=== PATIENT | male | born 1990 | race Two or more races ===

== ENCOUNTER 2024-05-31 20:15 | Observation (INO) ==
[2024-05-31 20:39] LABS: BASOPHILS % (AUTO) 0.3 % (0.2-1.0); EOSINOPHILS % (AUTO) 0.2 % (0.9-2.9); HEMATOCRIT 52.8 % (42.0-54.0); HEMOGLOBIN 18.5 g/dL (13.5-18.0); LYMPHOCYTES # (AUTO) 2.1 X10^3/uL (1.3-2.9); LYMPHOCYTES % (AUTO) 11.8 % (21.0-51.0); MEAN CORPUSCULAR VOLUME 82.8 fL (80.0-100.0); MEAN PLATELET VOLUME 8.7 fL (7.4-11.0); MONOCYTES # (AUTO) 1.4 x10^3/uL (0.3-0.8); MONOCYTES % (AUTO) 7.9 % (0.0-13.0); NEUTROPHILS # (AUTO) 13.9 x10^3/uL (2.2-4.8); NEUTROPHILS % (AUTO) 79.8 % (42.0-75.0); PLATELET COUNT 296 X10^3/uL (150.0-450.0); RED BLOOD COUNT 6.38 X10^6/uL (4.7-6.0); RED CELL DISTRIBUTION WIDTH 13.6 % (11.6-16.5); WHITE BLOOD COUNT 17.4 X10^3/uL (3.6-10.0)
[2024-05-31 20:46] VITALS: BMI 25.1
[2024-05-31] MEDS: PROTONIX INJ 40 MG VIAL IVP ONE (20:47)
[2024-05-31] MEDS: ZOFRAN INJ 4 MG VIAL IVP ONE ×2 (20:47→23:36)
[2024-05-31 20:50] LABS: ALANINE AMINOTRANSFERASE 35 Units/L (12-78); ALBUMIN 6.1 g/dL (3.4-5.0); ALKALINE PHOSPHATASE 101 Units/L (46-116); AMYLASE 94 Units/L (25-115); ASPARTATE AMINO TRANSFERASE 23 Units/L (15-37); BLOOD UREA NITROGEN 28 mg/dL (7-18); CALCIUM 11.1 mg/dL (8.5-10.1); CARBON DIOXIDE 19.8 mmol/L (21-32); CHLORIDE 97 mmol/L (98-107); COR NA(FOR HYPERGLY) 142 mmol/L (136-145); CREATININE 3.64 mg/dL (0.70-1.30); GLUCOSE 205 mg/dL (65-99); LIPASE 44 Units/L (16-77); POTASSIUM 3.5 mmol/L (3.5-5.1); SODIUM 139 mmol/L (136-145); TOTAL PROTEIN 10.2 g/dL (6.4-8.2); eGFR NON BLACK RACES 21 (>60)
--- NOTE | 2024-05-31 20:59 | DR.GENAD ---
HPI Time Seen Time Seen by Provider: 05/31/24 20:58 PCP Primary Care Physician: SANJUANA HPI Comment HPI Comment: Patient with complaint of midepigastric pain and reflux. Patient states he has been very nauseated and dry heaving. Patient states he previously had some small gastric ulcers. He does continue to drink daily. He has not been taking his from PARP inhibitor. He denies any melena hematochezia or hematemesis. Complaint/Symptoms Chief Complaint:: Patient was wheeled into ER by spouse. Patient's spouse states he has been complaining of severe epigastric pain and back pain an hour [employer]. Patient has hx of gastric ulcers and is a daily drinker. Self Treatment fo Chief Complaint: none COVID-19 Coronavirus risk:travel/contact w/high risk person: No Has patient experienced Coronavirus symptoms: No Source History Provided: Patient Mode of Arrival Mode of Arrival: Wheelchair Timing Onset of Chief Complaint: 05/31/24 PMH PMH Past Medical History: Yes Past Medical History Comment: gastric ulcers Past Surgical History: No Family History History of Family Medical Conditions: No Social History Alcohol Use: DAILY Travel Risk Coronavirus risk:travel/contact w/high risk person: No Has patient experienced Coronavirus symptoms: No Infectious screening In the last 2 months have you had wt loss of >10#?: NO Have you had fever, night sweats or hemotysis?: No Have you traveled outside the country in the last 6 months?: No Isolation: Standard ROS Review of Systems Constitutional: No Symptoms Reported Eyes: No Symptoms Reported ENTM: No Symptoms Reported Respiratoy: No Symptoms Reported Cardiovascular: No Symptoms Reported Gastrointestinal/Abdominal: See HPI, Abdominal Pain, Nausea and Vomiting Genitourinary: No Symptoms Reported Neurological: No Symptoms Reported Musculoskeletal: No Symptoms Reported Integumentary: No Symptoms Reported Hematologic/Lymphatic: No Symptoms Reported Endocrine: No Symptoms Reported Psychiatric: No Symptoms Reported All Other Systems: Reviewed and Negative PE Vital Signs Vitals: Vital Signs Pulse Rate 116 Respiratory Rate 18 Blood Pressure 118/76 O2 Sat by Pulse Oximetry 100 General Limitations: No Limitations General Appearance: Alert and In No Apparent Distress Head Head Exam: Normal Inspection Eyes Eye exam: Normal Appearance ENT ENT Exam: Normal Exam External Ear Exam: Normal External Inspection TM/Canal Exam: Bilateral: Normal Nose Exam: Normal Nose Exam Mouth Exam: Normal Inspection Throat Exam: Normal Inspection Neck Neck Exam: Normal Inspection Chest Chest Inspection: Normal Inspection Respiratory Respiratory Exam: Normal Lung Sounds Bilat Respiratory Exam: Bilateral: Clear to Auscultation Cardiovascular Cardiovascular Exam: Regular Rate and Normal Rhythm Abdominal Exam Abdominal Exam: Normal Inspection, Normal Bowel Sounds and Soft Extremities Extremities Exam: Normal Inspection Back Back Exam: Normal Inspection Neurologic Neurological Exam: Alert and Oriented X3 Psychiatric Psychiatric Exam: Normal Affect and Normal Mood Skin Skin Exam: Warm, Dry, Intact and Normal Color COURSE Treatment Treatment: Nausea, vomiting and dry heaving had some improvement with Zofran and Phenergan. He still appears dehydrated and has had 2 units. Acute kidney injury likely secondary to dehydration. Consultation Called: 23:31 Consultation Comments: Discussed case with Dr. Andrea and she is agreeable to admission. ROR Labs Reviewed 05/31/24 20:30 05/31/24 20:30 Laboratory: WBC 17.4 X10^3/uL (3.6-10.0) H 05/31/24 20:30 RBC 6.38 X10^6/uL (4.7-6.0) H 05/31/24 20:30 Hgb 18.5 g/dL (13.5-18.0) H 05/31/24 20:30 Hct 52.8 % (42.0-54.0) 05/31/24 20:30 MCV 82.8 fL (80.0-100.0) 05/31/24 20:30 MCH 29.0 pg (27.0-34.0) 05/31/24 20:30 MCHC 35.0 g/dL (33.0-35.0) 05/31/24 20:30 RDW 13.6 % (11.6-16.5) 05/31/24 20:30 Plt Count 296 X10^3/uL (150.0-450.0) 05/31/24 20:30 MPV 8.7 fL (7.4-11.0) 05/31/24 20:30 Neut % (Auto) 79.8 % (42.0-75.0) H 05/31/24 20:30 Lymph % (Auto) 11.8 % (21.0-51.0) L 05/31/24 20: [place] % (Auto) 7.9 % (0.0-13.0) 05/31/24 20:30 Eos % (Auto) 0.2 % (0.9-2.9) L 05/31/24 20:30 Baso % (Auto) 0.3 % (0.2-1.0) 05/31/24 20:30 Neut # (Auto) 13.9 x10^3/uL (2.2-4.8) H 05/31/24 20:30 Lymph # (Auto) 2.1 X10^3/uL (1.3-2.9) 05/31/24 20:30 [place] # (Auto) 1.4 x10^3/uL (0.3-0.8) H 05/31/24 20:30 Eos # (Auto) 0.0 x10^3/uL (0.0-0.2) 05/31/24 20: Baso # (Auto) 0.0 X10^3/uL (0.0-0.1) 05/31/24 20:30 Absolute Nucleated RBC 0.5 /100WBC 05/31/24 20:30 Sodium 139 mmol/L (136-145) 05/31/24 20:30 Corrected Sodium 142 mmol/L (136-145) 05/31/24 20:30 Potassium 3.5 mmol/L (3.5-5.1) 05/31/24 20:30 Chloride 97 mmol/L (98-107) L 05/31/24 20:30 Carbon Dioxide 19.8 mmol/L (21-32) L 05/31/24 20:30 BUN 28 mg/dL (7-18) H 05/31/24 20:30 Creatinine 3.64 mg/dL (0.70-1.30) H 05/31/24 20:30 Est GFR (MDRD) Af Amer 25 (>60) L 05/31/24 20:30 Est GFR (MDRD) Non-Af 21 (>60) L 05/31/24 20:30 Glucose 205 mg/dL (65-99) H 05/31/24 20:30 Calcium 11.1 mg/dL (8.5-10.1) H 05/31/24 20:30 Corrected Calcium TNP 05/31/24 20:30 Magnesium 2.6 mg/dL (2.0-2.9) 05/31/24 20:30 Total Bilirubin 1.20 mg/dL (0.2-1.0) H 05/31/24 20:30 AST 23 Units/L (15-37) 05/31/24 20:30 ALT 35 Units/L (12-78) 05/31/24 20:30 Alkaline Phosphatase 101 Units/L (46-116) 05/31/24 20:30 Total Protein 10.2 g/dL (6.4-8.2) H 05/31/24 20:30 Albumin 6.1 g/dL (3.4-5.0) H 05/31/24 20:30 Globulin 4.1 g/dL (2.5-4.5) 05/31/24 20:30 Albumin/Globulin Ratio 1.5 Ratio (1.1-2.1) 05/31/24 20:30 Amylase 94 Units/L (25-115) 05/31/24 20:30 Lipase 44 Units/L (16-77) 05/31/24 20:30 Opioid Opioid Risk Tool Age (Jose box if 16-45): Yes History of Preadolescent Sexual Abuse: No Total: 1 Total Score Risk Category: Low Risk Copyright: Zac MUNROE predicting aberrant behaviors Discharge Plan Diagnosis Discharge Problem: Acute kidney injury, Acute dehydration, Intractable nausea and vomiting Discharge Plan Patient Disposition: 09 ADMITTED INPATIENT Condition: Stable Health Concerns: Post Hospitalization: new medications and changes needed to prevent readmission or further decline. Pt educated and given instructions on all concerns. Plan of Treatment: Continue with present treatment and follow up plan. Pt is to keep follow up appointment as instructed and take medications as ordered. Orders to Discharge Patient Discharge Orders: Transfer (Routine); Ordered 05/31/24 Ordered By: David Wilson Follow ups/Referrals Follow ups/Referrals: NFD,None [Primary Care Provider] - 3 days Instructions Stand Alone Forms: Find Help Web Site, Post Hospital Follow Up Care
[2024-05-31] MEDS: NS 1,000 ML IV 1,000 ML IV ONE ×2 (21:24→22:45)
--- NOTE | 2024-05-31 22:35 | CT ---
CT ABDOMEN AND PELVIS WITHOUT CONTRAST HISTORY: Abdominal pain COMPARISON: None TECHNIQUE: Axial images were obtained of the abdomen and pelvis without IV contrast. Sagittal and coronal reform atted images were provided. All images were reviewed in a variety of windows and levels. RADIATION REDUCTION TECHNIQUE: Automated exposure control, adjustment of the mA or kV according to pa tient size, or iterative reconstruction techniques were used. FINDINGS: Please note that lack of IV contrast does limit evaluation of the soft tissues and vascular detail. The visualized lower lung zones are clear. The heart size is within normal limits. There is no evide nce of a pericardial effusion. The liver, spleen, pancreas, adrenal glands, and kidneys are grossly unremarkable. The gallbladder is grossly unremarkable. There is no evidence of stones or signs of obstructive uropathy. The stomach, small bowel, and colon are grossly unremarkable. There are no inflammatory changes in t he right lower quadrant to suggest secondary signs of acute appendicitis. The appendix is normal. There is no evidence of retroperitoneal or mesenteric lymphadenopathy. The visualized bones are unremarkable. There are no concerning lytic or blastic lesions identified. IMPRESSION: 1. There is no evidence of stones or signs of obstructive uropathy. 2. The appendix is normal. THIS IS AN ELECTRONICALLY VERIFIED FINAL REPORT 05/31/2024 10:31 PM - Electronically signed by Wyatt Munoz MD
[2024-05-31] MEDS: MAGNESIUM SULFATE 1 GRAM/100 mL PREMIX 1 G/100 ML BAG IV ONE (22:45)
[2024-05-31] MEDS: PHENERGAN INJ 25 MG IM ONE (22:49)
[2024-05-31] MEDS: LEVSIN/MAALOX/LIDOC VISC PO ONE (23:35)
[2024-06-01] MEDS ORDERED: CONSULT PHARMACY - POTASSIUM & MAGNESIUM XX SCH ×2 (00:24→06:00)
[2024-06-01 00:25] LABS: BILIRUBIN,URINE NEGATIVE (NEGATIVE); BLOOD/HEMOGLOBIN,URINE 3+ (NEGATIVE); GLUCOSE, URINE NEGATIVE (NEGATIVE); KETONES,URINE 3+ (NEGATIVE); LEUKOCYTE ESTERASE ,URINE 1+ (NEGATIVE); NITRITES,URINE NEGATIVE (NEGATIVE); PROTEIN,URINE 2+ (NEGATIVE); UROBILINOGEN,URINE 1+ (NORMAL)
[2024-06-01 00:48] LABS: APPEARANCE,URINE SLIGHTLY HAZY (CLEAR); COLOR,URINE DARK YELLOW (YELLOW)
[2024-06-01 00:49] LABS: BACTERIA,URINE TRACE /HPF (NEGATIVE); CALCIUM OXALATE CRYSTALS,UR FEW /HPF (NEGATIVE); HYALINE CASTS, URINE MODERATE /LPF (NEGATIVE); SQUAMOUS EPITHELIAL CELL,UR FEW /HPF (NEGATIVE)
[2024-06-01] MEDS ORDERED: NS 250 ML IV 250 ML IV ONE (00:53)
[2024-06-01] MEDS: NS 1,000 ML IV 1,000 ML IV SCH (00:56)
[2024-06-01] MEDS: K-RIDER 10 MEQ/100 ML WATER 10 MEQ/100 ML BAG IV ONE (00:56)
[2024-06-01] MEDS: ZOFRAN INJ 4 MG VIAL ONE (01:29)
[2024-06-01] MEDS: PROTONIX INJ 40 MG VIAL ONE (01:31)
[2024-06-01] MEDS: ZOFRAN INJ 4 MG VIAL IVP PRN (03:02)
[2024-06-01] MEDS: NS 250 ML IV 250 ML IV PRN (03:02)
[2024-06-01] MEDS: PHENERGAN INJ 25 MG IM PRN (04:15)
[2024-06-01 05:25] LABS: BASOPHILS % (AUTO) 0.2 % (0.2-1.0); HEMATOCRIT 44.2 % (42.0-54.0); LYMPHOCYTES # (AUTO) 0.7 X10^3/uL (1.3-2.9); LYMPHOCYTES % (AUTO) 6.3 % (21.0-51.0); MEAN CORPUSCULAR HEMOGLOBIN 29.4 pg (27.0-34.0); MEAN CORPUSCULAR VOLUME 81.7 fL (80.0-100.0); MEAN PLATELET VOLUME 9.1 fL (7.4-11.0); MONOCYTES # (AUTO) 0.6 x10^3/uL (0.3-0.8); MONOCYTES % (AUTO) 5.5 % (0.0-13.0); NEUTROPHILS # (AUTO) 9.7 x10^3/uL (2.2-4.8); PLATELET COUNT 225 X10^3/uL (150.0-450.0); RED BLOOD COUNT 5.41 X10^6/uL (4.7-6.0); RED CELL DISTRIBUTION WIDTH 13.9 % (11.6-16.5)
[2024-06-01 05:39] LABS: ALANINE AMINOTRANSFERASE 31 Units/L (12-78); ALBUMIN 4.5 g/dL (3.4-5.0); ALKALINE PHOSPHATASE 74 Units/L (46-116); ASPARTATE AMINO TRANSFERASE 28 Units/L (15-37); BLOOD UREA NITROGEN 24 mg/dL (7-18); CALCIUM 9.5 mg/dL (8.5-10.1); CARBON DIOXIDE 15.7 mmol/L (21-32); CHLORIDE 107 mmol/L (98-107); COR NA(FOR HYPERGLY) 146 mmol/L (136-145); CREATININE 1.75 mg/dL (0.70-1.30); GLUCOSE 155 mg/dL (65-99); HEMOGLOBIN 15.9 g/dL (13.5-18.0); POTASSIUM 3.3 mmol/L (3.5-5.1); SODIUM 145 mmol/L (136-145); TOTAL PROTEIN 8.1 g/dL (6.4-8.2); eGFR NON BLACK RACES 48 (>60)
[2024-06-01] MEDS: PEPCID 20 MG VIAL 20 MG in NS 50 ML IV 50 ML IV SCH (08:15)
[2024-06-01] MEDS: K-RIDER 10 MEQ/100 ML WATER 10 MEQ/100 ML BAG IV SCH (08:29)
[2024-06-01] MEDS: PROTONIX INJ 40 MG VIAL IVP SCH (10:07)
[2024-06-01] MEDS: COMPAZINE INJ IM PRN (10:07)
[2024-06-01] MEDS: CARAFATE PO SCH (12:08)
[2024-06-02 05:36] LABS: EOSINOPHILS # (AUTO) 0.1 x10^3/uL (0.0-0.2); HEMOGLOBIN 14.3 g/dL (13.5-18.0); LYMPHOCYTES # (AUTO) 1.4 X10^3/uL (1.3-2.9); MONOCYTES # (AUTO) 0.5 x10^3/uL (0.3-0.8); NEUTROPHILS # (AUTO) 3.6 x10^3/uL (2.2-4.8)
[2024-06-02 05:48] LABS: ALANINE AMINOTRANSFERASE 35 Units/L (12-78); ALBUMIN 3.6 g/dL (3.4-5.0); ALKALINE PHOSPHATASE 58 Units/L (46-116); ASPARTATE AMINO TRANSFERASE 43 Units/L (15-37); BLOOD UREA NITROGEN 13 mg/dL (7-18); CALCIUM 8.4 mg/dL (8.5-10.1); CARBON DIOXIDE 24.9 mmol/L (21-32); CHLORIDE 109 mmol/L (98-107); COR NA(FOR HYPERGLY) 143 mmol/L (136-145); GLUCOSE 130 mg/dL (65-99); MAGNESIUM 2.1 mg/dL (2.0-2.9); POTASSIUM 3.7 mmol/L (3.5-5.1); SODIUM 142 mmol/L (136-145); TOTAL PROTEIN 6.6 g/dL (6.4-8.2); eGFR NON BLACK RACES > 60 (>60)
[2024-06-02 05:53] LABS: BASOPHILS % (AUTO) 0.6 % (0.2-1.0); EOSINOPHILS % (AUTO) 1.3 % (0.9-2.9); LYMPHOCYTES % (AUTO) 25.6 % (21.0-51.0); MEAN CORPUSCULAR HEMOGLOBIN 29.4 pg (27.0-34.0); MEAN CORPUSCULAR HGB CONC 34.9 g/dL (33.0-35.0); MEAN CORPUSCULAR VOLUME 84.4 fL (80.0-100.0); MONOCYTES % (AUTO) 9.5 % (0.0-13.0); PLATELET COUNT 158 X10^3/uL (150.0-450.0); RED BLOOD COUNT 4.86 X10^6/uL (4.7-6.0); RED CELL DISTRIBUTION WIDTH 14.2 % (11.6-16.5); WHITE BLOOD COUNT 5.6 X10^3/uL (3.6-10.0)
--- NOTE | 2024-06-02 09:18 | DR.H&P ---
H&P History & Physical for Day of: H&P Date: 06/01/24 Chief Complaint Chief Complaint: abdominal pain nausea/vomiting History of Present Illness History of Present Illness: Patient is a 34-year-old male with no current medical history presenting with abdominal pain, nausea, vomiting that has been gradually getting worse over the past week. He reports he has had an episode like this before and had extensive workup including EGD and abdominal imaging to rule out gallbladder issues. His reports that all those tests returned negative for any acute findings. He does report drinking daily and smoking marijuana. Labs/imaging: WBC 11, hemoglobin 15.9, platelets 225, sodium 145, potassium 3.3, creatinine 1.75, glucose 155, UA negative, CT abdomen pelvis was obtained that revealed no acute intra-abdominal findings. Patient was admitted for intractable nausea and vomiting and gastritis, along with dehydration. Gen eral Surgery was consultedDrChitra Espinal. Recommend slowly advancing diet, continue IV fluids, continue antiemetics. No further testing recommended. Will continue with IV fluids, Compazine, Carafate, Zofran. He is currently on IV Pepcid and Protonix. Gradually advance diet as tolerated. Otherwise continue with current treatment plan. Continue closely monitor follow-up labs/imaging. Social History Does patient currently use any type of tobacco product: Yes (marijuana) Type of Tobacco Use: marijuana Does any household member use tobacco: No Alcohol Use: DAILY Drug Use: Marijuana Allergies Allergies Allergy/AdvReac Type Severity Reaction Status Date / Time No Known Drug Allergies Allergy Verified 05/31/24 23:29 [NKDA] Labs 06/02/24 05:12 06/02/24 05:12 Labs: Laboratory WBC 11.0 X10^3/uL (3.6-10.0) H 06/01/24 04:17 RBC 5.41 X10^6/uL (4.7-6.0) 06/01/24 04:17 Hgb 15.9 g/dL (13.5-18.0) D 06/01/24 04:17 Hct 44.2 % (42.0-54.0) 06/01/24 04:17 MCV 81.7 fL (80.0-100.0) 06/01/24 04:17 MCH 29.4 pg (27.0-34.0) 06/01/24 04:17 MCHC 36.0 g/dL (33.0-35.0) H 06/01/24 04:17 RDW 13.9 % (11.6-16.5) 06/01/24 04:17 Plt Count 225 X10^3/uL (150.0-450.0) 06/01/24 04:17 MPV 9.1 fL (7.4-11.0) 06/01/24 04:17 Neut % (Auto) 88.0 % (42.0-75.0) H 06/01/24 04:17 Lymph % (Auto) 6.3 % (21.0-51.0) L 06/01/24 04:17 [place] % (Auto) 5.5 % (0.0-13.0) 06/01/24 04:17 Eos % (Auto) 0.0 % (0.9-2.9) L 06/01/24 04:17 Baso % (Auto) 0.2 % (0.2-1.0) 06/01/24 04:17 Neut # (Auto) 9.7 x10^3/uL (2.2-4.8) H 06/01/24 04:17 Lymph # (Auto) 0.7 X10^3/uL (1.3-2.9) L 06/01/24 04:17 [place] # (Auto) 0.6 x10^3/uL (0.3-0.8) 06/01/24 04:17 Eos # (Auto) 0.0 x10^3/uL (0.0-0.2) 06/01/24 04:17 Baso # (Auto) 0.0 X10^3/uL (0.0-0.1) 06/01/24 04:17 Absolute Nucleated RBC 0.1 /100WBC 06/01/24 04:17 Sodium 145 mmol/L (136-145) 06/01/24 04:17 Corrected Sodium 146 mmol/L (136-145) H 06/01/24 04:17 Potassium 3.3 mmol/L (3.5-5.1) L 06/01/24 04:17 Chloride 107 mmol/L (98-107) 06/01/24 04:17 Carbon Dioxide 15.7 mmol/L (21-32) L 06/01/24 04:17 BUN 24 mg/dL (7-18) H 06/01/24 04:17 Creatinine 1.75 mg/dL (0.70-1.30) H 06/01/24 04:17 Est GFR (MDRD) Af Amer 58 (>60) L 06/01/24 04:17 Est GFR (MDRD) Non-Af 48 (>60) L 06/01/24 04:17 Glucose 155 mg/dL (65-99) H 06/01/24 04:17 Calcium 9.5 mg/dL (8.5-10.1) 06/01/24 04:17 Corrected Calcium TNP 06/01/24 04:17 Magnesium 2.4 mg/dL (2.0-2.9) 06/01/24 04:17 Total Bilirubin 0.90 mg/dL (0.2-1.0) 06/01/24 04:17 AST 28 Units/L (15-37) 06/01/24 04:17 ALT 31 Units/L (12-78) 06/01/24 04:17 Alkaline Phosphatase 74 Units/L (46-116) 06/01/24 04:17 Total Protein 8.1 g/dL (6.4-8.2) 06/01/24 04:17 Albumin 4.5 g/dL (3.4-5.0) 06/01/24 04:17 Globulin 3.6 g/dL (2.5-4.5) 06/01/24 04:17 Albumin/Globulin Ratio 1.3 Ratio (1.1-2.1) 06/01/24 04:17 Amylase 94 Units/L (25-115) 05/31/24 20:30 Lipase 44 Units/L (16-77) 05/31/24 20:30 Specimen Type Clean catch urine 06/01/24 00:12 Urine Color Dark yellow (YELLOW) 06/01/24 00:12 Urine Appearance Slightly hazy (CLEAR) 06/01/24 00:12 Urine pH 6.0 (5.0 - 8.0) 06/01/24 00:12 Ur Specific [place] 1.015 (1.000-1.030) 06/01/24 00:12 Urine Protein 2+ (NEGATIVE) 06/01/24 00:12 Urine Glucose (UA) Negative (NEGATIVE) 06/01/24 00:12 Urine Ketones 3+ (NEGATIVE) 06/01/24 00:12 Urine Blood 3+ (NEGATIVE) 06/01/24 00:12 Urine Nitrite Negative (NEGATIVE) 06/01/24 00:12 Urine Bilirubin Negative (NEGATIVE) 06/01/24 00:12 Urine Urobilinogen 1+ (NORMAL) 06/01/24 00:12 Ur Leukocyte Esterase 1+ (NEGATIVE) 06/01/24 00:12 Urine RBC 3-5 /HPF (0-3) A 06/01/24 00:12 Urine WBC 0-2 /HPF (0-5) 06/01/24 00:12 Ur Squamous Epith Cells Few /HPF (NEGATIVE) 06/01/24 00:12 Calcium Oxalate Crystal Few /HPF (NEGATIVE) 06/01/24 00:12 Urine Bacteria Trace /HPF (NEGATIVE) 06/01/24 00:12 Hyaline Casts Moderate /LPF (NEGATIVE) 06/01/24 00:12 Urine Mucus Moderate /HPF (NEGATIVE) 06/01/24 00:12 Ur Culture Indicated? No/not indicated 06/01/24 00:12 Review of Systems Constitutional: No Symptoms Reported Eyes: No Symptoms Reported ENT: No Symptoms Reported Respiratory: No Symptoms Reported Cardiovascular: No Symptoms Reported Gastrointestinal: Nausea, Vomiting and Abdominal Pain Genitourinary: No Symptoms Reported Musculoskeletal: No Symptoms Reported Skin: No Symptoms Reported Neurological: No Symptoms Reported Physical Exam Vital Signs: Vital Signs Temperature 98.2 F Pulse Rate 70 Pulse Rate 71 Pulse Rate 74 Pulse Rate 72 Respiratory Rate 24 Respiratory Rate 26 Respiratory Rate 22 Respiratory Rate 21 Blood Pressure 139/69 Blood Pressure 139/69 Blood Pressure 103/63 Blood Pressure 109/59 O2 Sat by Pulse Oximetry 98 O2 Sat by Pulse Oximetry 98 O2 Sat by Pulse Oximetry 99 O2 Sat by Pulse Oximetry 100 Oriented: Normal Eyes: Normal Ear: Normal Nose: Normal Throat: Normal Respiratory: Clear Throughout Cardiovascular: Normal : Normal Auscultation: Bowel Sounds: Normal Palpation: Normal Tenderness: Epigastric Skin: Normal Musculoskeletal: Normal Psychiatric: Normal Mood Description: Calm and Appropriate Affect: Normal Speech Pattern: Clear and Appropriate Assessment/Plan (1) Intractable nausea and vomiting: Status: Acute Plan: General Surgery was consultedDr. Al. Recommend slowly advancing diet, continue IV fluids, continue antiemetics. No further testing recommended. (2) Gastritis: Qualifiers: Gastritis type: unspecified gastritis Chronicity: acute Gastritis bleeding: without bleeding Qualified Code(s): K29.00 - Acute gastritis without bleeding Status: Acute (3) Acute dehydration: Status: Acute (4) Acute kidney injury: Status: Acute Review H&P Reviewed: Yes Patient was examined?: Yes
[2024-06-02 11:40] VITALS: RESP 18
[2024-06-02] MEDS: NS 1,000 ML IV 1,000 ML IV SCH (12:14)
[2024-06-02] MEDS: DEMEROL INJ IVP PRN (12:21)
[2024-06-02] MEDS: NS 1,000 ML IV 1,000 ML ONE ×2 (12:50→12:51)
[2024-06-02] MEDS: MAGNESIUM SULFATE 1 GRAM/100 mL PREMIX 1 G/100 ML BAG IV ONE (12:51)
[2024-06-02] MEDS: LEVSIN/MAALOX/LIDOC VISC ONE (12:51)
[2024-06-02] MEDS: PHENERGAN INJ 25 MG IM ONE (12:52)
[2024-06-03 04:02] VITALS: O2SAT 98
[2024-06-03 05:14] LABS: BASOPHILS % (AUTO) 0.3 % (0.2-1.0); EOSINOPHILS % (AUTO) 0.4 % (0.9-2.9); HEMATOCRIT 42.5 % (42.0-54.0); LYMPHOCYTES # (AUTO) 1.1 X10^3/uL (1.3-2.9); MEAN CORPUSCULAR HEMOGLOBIN 29.5 pg (27.0-34.0); MEAN CORPUSCULAR HGB CONC 35.4 g/dL (33.0-35.0); MEAN CORPUSCULAR VOLUME 83.4 fL (80.0-100.0); MEAN PLATELET VOLUME 8.7 fL (7.4-11.0); MONOCYTES # (AUTO) 0.6 x10^3/uL (0.3-0.8); MONOCYTES % (AUTO) 9.4 % (0.0-13.0); NEUTROPHILS # (AUTO) 4.9 x10^3/uL (2.2-4.8); NEUTROPHILS % (AUTO) 72.9 % (42.0-75.0); PLATELET COUNT 167 X10^3/uL (150.0-450.0); RED BLOOD COUNT 5.09 X10^6/uL (4.7-6.0); RED CELL DISTRIBUTION WIDTH 13.6 % (11.6-16.5); WHITE BLOOD COUNT 6.7 X10^3/uL (3.6-10.0)
[2024-06-03 05:33] LABS: ALANINE AMINOTRANSFERASE 71 Units/L (12-78); ALBUMIN 3.9 g/dL (3.4-5.0); ALKALINE PHOSPHATASE 66 Units/L (46-116); ASPARTATE AMINO TRANSFERASE 68 Units/L (15-37); BLOOD UREA NITROGEN 10 mg/dL (7-18); CARBON DIOXIDE 26.2 mmol/L (21-32); CHLORIDE 104 mmol/L (98-107); COR NA(FOR HYPERGLY) 140 mmol/L (136-145); CREATININE 0.78 mg/dL (0.70-1.30); GLUCOSE 114 mg/dL (65-99); POTASSIUM 3.3 mmol/L (3.5-5.1); SODIUM 140 mmol/L (136-145); TOTAL PROTEIN 7.2 g/dL (6.4-8.2); eGFR NON BLACK RACES > 60 (>60)
[2024-06-03] MEDS ORDERED: CONSULT PHARMACY - POTASSIUM & MAGNESIUM XX SCH (08:00)
[2024-06-03] MEDS: MAALOX or MYLANTA PO PRN (09:18)
[2024-06-03] MEDS: K-DUR TAB 20 MEQ PO SCH (09:18)
[2024-06-03] MEDS ORDERED: K-RIDER 10 MEQ/100 ML WATER 10 MEQ/100 ML BAG IV SCH (10:00)
[2024-06-03 10:14] VITALS: BP 135/82; PULSE 54; TEMP 97.5
--- NOTE | 2024-06-03 11:20 | PCM.PROG ---
Progress Note Progress Note for Day of Date of Exam: 06/02/24 Subjective Subjective: Patient seen at bedside, no acute events overnight. He has been having more nausea and vomiting this morning. He did eat a regular diet this morning for breakfast and started feeling worse shortly after. He is currently admitted for gastritis and intractable nausea/vomiting. Lab/imaging reviewed: - WBC 5.6 hemoglobin 14.3 potassium 3.7 Plan: Continue Zofran, IV Protonix and Pepcid. Continue Carafate. Add Demerol as needed. Change diet to full liquids. Replace electrolytes as per protocol. Possible discharge today if patient feeling better after lunch. Monitor labs and imaging. Past Medical Family Social History Allergies: Allergies No Known Drug Allergies [NKDA] Allergy (Verified 05/31/24 23:29) Vital Signs and I&O's Vital Signs: Vital Signs Temperature 97.5 F Temperature 98.4 F Pulse Rate 54 Pulse Rate 63 Respiratory Rate 18 Respiratory Rate 18 Blood Pressure 135/82 Blood Pressure 122/58 O2 Sat by Pulse Oximetry 98 O2 Sat by Pulse Oximetry 98 Intake and Output: Intake & Output 05/31/24 06/01/24 06/02/24 06/03/24 23:59 23:59 23:59 23:59 Intake Total 3376 / 3376 / Balance 3376 / 3376 Physical Exam Oriented: Normal Eyes: Normal Ear: Normal Nose: Normal Throat: Normal Respiratory: Normal Cardiovascular: Normal Auscultation: Bowel Sounds: Normal Tenderness: Epigastric and Mild Skin: Normal Musculoskeletal: Normal Psychiatric: Normal Mood Description: Calm and Appropriate Affect: Normal Speech Pattern: Clear and Appropriate Laboratory and Diagnostics 06/03/24 04:41 06/03/24 04:41 Labs: Laboratory WBC 6.7 X10^3/uL (3.6-10.0) 06/03/24 04:41 RBC 5.09 X10^6/uL (4.7-6.0) 06/03/24 04:41 Hgb 15.0 g/dL (13.5-18.0) 06/03/24 04:41 Hct 42.5 % (42.0-54.0) 06/03/24 04:41 MCV 83.4 fL (80.0-100.0) 06/03/24 04:41 MCH 29.5 pg (27.0-34.0) 06/03/24 04:41 MCHC 35.4 g/dL (33.0-35.0) H 06/03/24 04:41 RDW 13.6 % (11.6-16.5) 06/03/24 04:41 Plt Count 167 X10^3/uL (150.0-450.0) 06/03/24 04:41 MPV 8.7 fL (7.4-11.0) 06/03/24 04:41 Neut % (Auto) 72.9 % (42.0-75.0) 06/03/24 04:41 Lymph % (Auto) 17.0 % (21.0-51.0) L 06/03/24 04:41 [place] % (Auto) 9.4 % (0.0-13.0) 06/03/24 04:41 Eos % (Auto) 0.4 % (0.9-2.9) L 06/03/24 04:41 Baso % (Auto) 0.3 % (0.2-1.0) 06/03/24 04:41 Neut # (Auto) 4.9 x10^3/uL (2.2-4.8) H 06/03/24 04:41 Lymph # (Auto) 1.1 X10^3/uL (1.3-2.9) L 06/03/24 04:41 [place] # (Auto) 0.6 x10^3/uL (0.3-0.8) 06/03/24 04:41 Eos # (Auto) 0.0 x10^3/uL (0.0-0.2) 06/03/24 04:41 Baso # (Auto) 0.0 X10^3/uL (0.0-0.1) 06/03/24 04:41 Absolute Nucleated RBC 0.0 /100WBC 06/03/24 04:41 Sodium 140 mmol/L (136-145) 06/03/24 04:41 Corrected Sodium 140 mmol/L (136-145) 06/03/24 04:41 Potassium 3.3 mmol/L (3.5-5.1) L 06/03/24 04:41 Chloride 104 mmol/L (98-107) 06/03/24 04:41 Carbon Dioxide 26.2 mmol/L (21-32) 06/03/24 04:41 BUN 10 mg/dL (7-18) 06/03/24 04:41 Creatinine 0.78 mg/dL (0.70-1.30) 06/03/24 04:41 Est GFR (MDRD) Af Amer > 60 (>60) 06/03/24 04:41 Est GFR (MDRD) Non-Af > 60 (>60) 06/03/24 04:41 Glucose 114 mg/dL (65-99) H 06/03/24 04:41 Calcium 9.0 mg/dL (8.5-10.1) 06/03/24 04:41 Corrected Calcium TNP 06/03/24 04:41 Magnesium 2.0 mg/dL (2.0-2.9) 06/03/24 04:41 Total Bilirubin 1.00 mg/dL (0.2-1.0) 06/03/24 04:41 AST 68 Units/L (15-37) H 06/03/24 04:41 ALT 71 Units/L (12-78) 06/03/24 04:41 Alkaline Phosphatase 66 Units/L (46-116) 06/03/24 04:41 Total Protein 7.2 g/dL (6.4-8.2) 06/03/24 04:41 Albumin 3.9 g/dL (3.4-5.0) 06/03/24 04:41 Globulin 3.3 g/dL (2.5-4.5) 06/03/24 04:41 Albumin/Globulin Ratio 1.2 Ratio (1.1-2.1) 06/03/24 04:41 Amylase 94 Units/L (25-115) 05/31/24 20:30 Lipase 44 Units/L (16-77) 05/31/24 20:30 Specimen Type Clean catch urine 06/01/24 00:12 Urine Color Dark yellow (YELLOW) 06/01/24 00:12 Urine Appearance Slightly hazy (CLEAR) 06/01/24 00:12 Urine pH 6.0 (5.0 - 8.0) 06/01/24 00:12 Ur Specific [place] 1.015 (1.000-1.030) 06/01/24 00:12 Urine Protein 2+ (NEGATIVE) 06/01/24 00:12 Urine Glucose (UA) Negative (NEGATIVE) 06/01/24 00:12 Urine Ketones 3+ (NEGATIVE) 06/01/24 00:12 Urine Blood 3+ (NEGATIVE) 06/01/24 00:12 Urine Nitrite Negative (NEGATIVE) 06/01/24 00:12 Urine Bilirubin Negative (NEGATIVE) 06/01/24 00:12 Urine Urobilinogen 1+ (NORMAL) 06/01/24 00:12 Ur Leukocyte Esterase 1+ (NEGATIVE) 06/01/24 00:12 Urine RBC 3-5 /HPF (0-3) A 06/01/24 00:12 Urine WBC 0-2 /HPF (0-5) 06/01/24 00:12 Ur Squamous Epith Cells Few /HPF (NEGATIVE) 06/01/24 00:12 Calcium Oxalate Crystal Few /HPF (NEGATIVE) 06/01/24 00:12 Urine Bacteria Trace /HPF (NEGATIVE) 06/01/24 00:12 Hyaline Casts Moderate /LPF (NEGATIVE) 06/01/24 00:12 Urine Mucus Moderate /HPF (NEGATIVE) 06/01/24 00:12 Ur Culture Indicated? No/not indicated 06/01/24 00:12 Plan (1) Intractable nausea and vomiting: Status: Acute (2) Gastritis: Status: Acute Qualifiers: Chronicity: acute Gastritis bleeding: without bleeding Gastritis type: unspecified gastritis Qualified Code(s): K29.00 - Acute gastritis without bleeding (3) Acute dehydration: Status: Acute (4) Acute kidney injury: Status: Acute
--- NOTE | 2024-06-04 10:43 | W.DIS.FURT ---
Summary of Discharge Discharge Summary of Date Date of Exam: 06/03/24 Admission Date Date of Admission: 06/01/24 Admission Diagnosis Patient Problems (Updated 06/02/24 @ 09:16 by Pedrito Westbrook MD) Acute kidney injury (Acute) N17.9 Acute dehydration (Acute) E86.0 Intractable nausea and vomiting (Acute) R11.2 Hospital Course: Patient is a 34-year-old male with no current medical history presenting with abdominal pain, nausea, vomiting that has been gradually getting worse over the past week. He reports he has had an episode like this before and had extensive workup including EGD and abdominal imaging to rule out gallbladder issues. He does report drinking daily and smoking marijuana. ER workup showed elevated WBC, potassium 3.[address] abdomen pelvis did not show any acute elvis nges. He was admitted for intractable nausea, vomiting and gastritis. He was started on IV fluids, IV Protonix and antiemetics. Dr. Jett was also consulted and did not recommend any further intervention. He was also started on Carafate. His diet was advanced as tolerated. His electrolytes were monitored and replaced as needed. He was feeling better. His diet was advanced to regular but patient started having nausea and abdominal pain. He was told to continue with liquid diet for at least a week. He was stable for discharge. He will follow-up with PCP and GI as outpatient. Vital Signs: Vital Signs (72 hours) 05/31/24 20:39 05/31/24 23:38 06/01/24 00:25 Temperature 97.5 F L Pulse Rate 116 H Pulse Rate [Left] 85 Respiratory Rate 18 Blood Pressure 118/76 Blood Pressure [Left Arm] 148/82 O2 Sat by Pulse Oximetry 100 100 Oxygen Delivery Method Room Air 06/01/24 01:00 06/01/24 02:00 06/01/24 03:00 Temperature 97.5 F L Pulse Rate 70 72 74 Pulse Rate [Left] Respiratory Rate 22 21 22 Blood Pressure 146/73 109/59 103/63 Blood Pressure [Left Arm] O2 Sat by Pulse Oximetry 100 100 99 Oxygen Delivery Method Room Air Room Air Room Air 06/01/24 04:00 06/01/24 05:00 06/01/24 08:00 Temperature 98.2 F 98.9 F Pulse Rate 71 70 67 Pulse Rate [Left] Respiratory Rate 26 H 24 20 Blood Pressure 139/69 139/69 120/56 Blood Pressure [Left Arm] O2 Sat by Pulse Oximetry 98 98 97 Oxygen Delivery Method Room Air Room Air Room Air 06/01/24 07:00 06/01/24 12:00 06/01/24 16:00 Temperature 98.5 F 98.3 F Pulse Rate 57 L 56 L Pulse Rate [Left] Respiratory Rate 20 20 Blood Pressure 122/67 118/70 Blood Pressure [Left Arm] O2 Sat by Pulse Oximetry 98 100 Oxygen Delivery Method Room Air Room Air Room Air 06/01/24 19:00 06/01/24 20:00 06/01/24 23:34 Temperature 98.6 F 97.9 F Pulse Rate 72 60 Pulse Rate [Left] Respiratory Rate 16 18 Blood Pressure 115/60 113/63 Blood Pressure [Left Arm] O2 Sat by Pulse Oximetry 99 98 Oxygen Delivery Method Room Air Room Air Room Air 06/02/24 04:00 06/02/24 07:00 06/02/24 08:00 Temperature 98.2 F 97.6 F Pulse Rate 59 L 87 Pulse Rate [Left] Respiratory Rate 16 20 Blood Pressure 113/63 141/83 Blood Pressure [Left Arm] O2 Sat by Pulse Oximetry 98 97 Oxygen Delivery Method Room Air Room Air Room Air 06/02/24 12:21 06/02/24 12:53 06/02/24 11:39 Temperature 97.7 F Pulse Rate 55 L Pulse Rate [Left] Respiratory Rate 18 18 18 Blood Pressure 125/66 Blood Pressure [Left Arm] O2 Sat by Pulse Oximetry 98 Oxygen Delivery Method Room Air 06/02/24 16:00 06/02/24 20:00 06/02/24 19:00 Temperature 97.9 F 99.1 F Pulse Rate 60 60 Pulse Rate [Left] Respiratory Rate 18 18 Blood Pressure 128/78 129/63 Blood Pressure [Left Arm] O2 Sat by Pulse Oximetry 99 97 Oxygen Delivery Method Room Air Room Air Room Air 06/03/24 00:00 06/03/24 04:00 06/03/24 08:00 Temperature 98.6 F 98.4 F 97.5 F L Pulse Rate 53 L 63 54 L Pulse Rate [Left] Respiratory Rate 24 18 18 Blood Pressure 132/57 122/58 135/82 Blood Pressure [Left Arm] O2 Sat by Pulse Oximetry 99 98 98 Oxygen Delivery Method Room Air Room Air Room Air Labs: Laboratory Last Values WBC 6.7 X10^3/uL (3.6-10.0) 06/03/24 04:41 RBC 5.09 X10^6/uL (4.7-6.0) 06/03/24 04:41 Hgb 15.0 g/dL (13.5-18.0) 06/03/24 04:41 Hct 42.5 % (42.0-54.0) 06/03/24 04:41 MCV 83.4 fL (80.0-100.0) 06/03/24 04:41 MCH 29.5 pg (27.0-34.0) 06/03/24 04:41 MCHC 35.4 g/dL (33.0-35.0) H 06/03/24 04:41 RDW 13.6 % (11.6-16.5) 06/03/24 04:41 Plt Count 167 X10^3/uL (150.0-450.0) 06/03/24 04:41 MPV 8.7 fL (7.4-11.0) 06/03/24 04:41 Neut % (Auto) 72.9 % (42.0-75.0) 06/03/24 04:41 Lymph % (Auto) 17.0 % (21.0-51.0) L 06/03/24 04:41 [place] % (Auto) 9.4 % (0.0-13.0) 06/03/24 04:41 Eos % (Auto) 0.4 % (0.9-2.9) L 06/03/24 04:41 Baso % (Auto) 0.3 % (0.2-1.0) 06/03/24 04:41 Neut # (Auto) 4.9 x10^3/uL (2.2-4.8) H 06/03/24 04:41 Lymph # (Auto) 1.1 X10^3/uL (1.3-2.9) L 06/03/24 04:41 [place] # (Auto) 0.6 x10^3/uL (0.3-0.8) 06/03/24 04:41 Eos # (Auto) 0.0 x10^3/uL (0.0-0.2) 06/03/24 04:41 Baso # (Auto) 0.0 X10^3/uL (0.0-0.1) 06/03/24 04:41 Absolute Nucleated RBC 0.0 /100WBC 06/03/24 04:41 Sodium 140 mmol/L (136-145) 06/03/24 04:41 Corrected Sodium 140 mmol/L (136-145) 06/03/24 04:41 Potassium 3.3 mmol/L (3.5-5.1) L 06/03/24 04:41 Chloride 104 mmol/L (98-107) 06/03/24 04:41 Carbon Dioxide 26.2 mmol/L (21-32) 06/03/24 04:41 BUN 10 mg/dL (7-18) 06/03/24 04:41 Creatinine 0.78 mg/dL (0.70-1.30) 06/03/24 04:41 Est GFR (MDRD) Af Amer > 60 (>60) 06/03/24 04:41 Est GFR (MDRD) Non-Af > 60 (>60) 06/03/24 04:41 Glucose 114 mg/dL (65-99) H 06/03/24 04:41 Calcium 9.0 mg/dL (8.5-10.1) 06/03/24 04:41 Corrected Calcium TNP 06/03/24 04:41 Magnesium 2.0 mg/dL (2.0-2.9) 06/03/24 04:41 Total Bilirubin 1.00 mg/dL (0.2-1.0) 06/03/24 04:41 AST 68 Units/L (15-37) H 06/03/24 04:41 ALT 71 Units/L (12-78) 06/03/24 04:41 Alkaline Phosphatase 66 Units/L (46-116) 06/03/24 04:41 Total Protein 7.2 g/dL (6.4-8.2) 06/03/24 04:41 Albumin 3.9 g/dL (3.4-5.0) 06/03/24 04:41 Globulin 3.3 g/dL (2.5-4.5) 06/03/24 04:41 Albumin/Globulin Ratio 1.2 Ratio (1.1-2.1) 06/03/24 04:41 Amylase 94 Units/L (25-115) 05/31/24 20:30 Lipase 44 Units/L (16-77) 05/31/24 20:30 Specimen Type Clean catch urine 06/01/24 00:12 Urine Color Dark yellow (YELLOW) 06/01/24 00:12 Urine Appearance Slightly hazy (CLEAR) 06/01/24 00:12 Urine pH 6.0 (5.0 - 8.0) 06/01/24 00:12 Ur Specific [place] 1.015 (1.000-1.030) 06/01/24 00:12 Urine Protein 2+ (NEGATIVE) 06/01/24 00:12 Urine Glucose (UA) Negative (NEGATIVE) 06/01/24 00:12 Urine Ketones 3+ (NEGATIVE) 06/01/24 00:12 Urine Blood 3+ (NEGATIVE) 06/01/24 00:12 Urine Nitrite Negative (NEGATIVE) 06/01/24 00:12 Urine Bilirubin Negative (NEGATIVE) 06/01/24 00:12 Urine Urobilinogen 1+ (NORMAL) 06/01/24 00:12 Ur Leukocyte Esterase 1+ (NEGATIVE) 06/01/24 00:12 Urine RBC 3-5 /HPF (0-3) A 06/01/24 00:12 Urine WBC 0-2 /HPF (0-5) 06/01/24 00:12 Ur Squamous Epith Cells Few /HPF (NEGATIVE) 06/01/24 00:12 Calcium Oxalate Crystal Few /HPF (NEGATIVE) 06/01/24 00:12 Urine Bacteria Trace /HPF (NEGATIVE) 06/01/24 00:12 Hyaline Casts Moderate /LPF (NEGATIVE) 06/01/24 00:12 Urine Mucus Moderate /HPF (NEGATIVE) 06/01/24 00:12 Ur Culture Indicated? No/not indicated 06/01/24 00:12 Reason For Visit: INTRACTIBLE NAUSEA/VOMIT, KIMBER, DEHYDRATION Discharge Diagnosis All Active Problems (Updated 06/02/24 @ 09:16 by Pedrito Westbrook MD) Gastritis (Acute) Acute kidney injury (Acute) Acute dehydration (Acute) Intractable nausea and vomiting (Acute) Plan of Treatment: Continue with present treatment and follow up plan. Pt is to keep follow up appointment as instructed and take medications as ordered. Discharge Medications Discharge Medications: No Known Drug Allergies [NKDA] Allergy (Verified 05/31/24 23:29) New Prescriptions ondansetron 4 mg disintegrating tablet 4 mg PO Q8H PRN nausea and vomiting #20 tabs 06/03/24 [Rx] pantoprazole 40 mg tablet,delayed release 40 mg PO QDAY #30 tabs 06/03/24 [Rx] sucralfate 1 gram tablet 1 g PO TID 10 days #30 tabs 06/03/24 [Rx] Discharge Disposition Discharge Disposition: To home Discharge Condition: Stable Discharge Plan Discharge Plan Hospital Course: Patient is a 34-year-old male with no current medical history presenting with abdominal pain, nausea, vomiting that has been gradually getting worse over the past week. He reports he has had an episode like this before and had extensive workup including EGD and abdominal imaging to rule out gallbladder issues. He does report drinking daily and smoking marijuana. ER workup showed elevated WBC, potassium 3.[address] abdomen pelvis did not show any acute changes. He was admitted for intractable nausea, vomiting and gastritis. He was started on IV fluids, IV Protonix and antiemetics. Dr. Jett was also consulted and did not recommend any further intervention. He was also started on Carafate. His diet was advanced as tolerated. His electrolytes were monitored and replaced as needed. He was feeling better. His diet was advanced to regular but patient started having nausea and abdominal pain. He was told to continue with liquid diet for at least a week. He was stable for discharge. He will follow-up with PCP and GI as outpatient. Patient Disposition: 01 HOME, SELF-CARE Condition: Stable Health Concerns: Post Hospitalization: new medications and changes needed to prevent readmission or further decline. Pt educated and given instructions on all concerns. Care Plan Goals: Problem: Pain/Alteration in Comfort Goal: Improve/ Resolve Pain; Achieve Pain Tolerance Instructions: Take pain medications as prescribed. Contact your primary care provider if your pain is unrelieved or worsens. Follow up with primary care provider as directed. Plan of Treatment: Continue with present treatment and follow up plan. Pt is to keep follow up appointment as instructed and take medications as ordered. Prescription drug monitoring program results: PDMP reviewed and no concerns iden tified Prescriptions: New sucralfate 1 gram Tablet 1 g PO TID 10 Days Qty: 30 0RF pantoprazole 40 mg tablet,delayed release (DR/EC) 40 mg PO QDAY Qty: 30 0RF ondansetron 4 mg tablet,disintegrating 4 mg PO Q8H PRN (Reason: nausea and vomiting) Qty: 20 0RF Orders to Discharge Patient Discharge Orders: Discharge (Routine); Ordered 06/03/24 Ordered By: Oneida Cortez Follow ups/Referrals Follow ups/Referrals: Pedrito Westbrook MD [STAFF PHYSICIAN] - 06/12/24 2:30 pm JAX VERGARA [STAFF PHYSICIAN] - 06/14/24 9:30 am Instructions Instructions: Gastritis, Adult, [id number], Ondansetron oral dissolving tablet, Nausea and Vomiting, Adult, [id number], Dehydration, Adult, [id number], Rehydration, Adult, Sucralfate tablets, Pantoprazole tablets Activity Restrictions/Additional Instructions: No smoking or drinking. Continue liquid diet for 1 week and advance diet slowly Stand Alone Forms: Excuse From Work or School, Find Help Web Site, Post Hospital Follow Up Care
== END 2024-06-03 11:25 | disposition home or self-care (01) ==
LOC: ER 20:15 → ICU 20:15 → MED/SURG 06-01 17:02
PROVIDERS: ADMIT Internal Medicine; ATTEND Internal Medicine